=== PATIENT | male | born 1955 | race Caucasian/White ===

== ENCOUNTER 2017-01-20 12:51 | Emergency (ER) | payer OTHER, SELFPAY ==
[2017-01-20] MEDS ORDERED: MORPHINE SULFATE INJ 10 MG/ML VIAL IV ONE (13:23)
[2017-01-20] MEDS ORDERED: ONDANSETRON INJ 4 MG/2 ML VIAL ONE (13:25)
[2017-01-20] MEDS ORDERED: SODIUM CHLORIDE 0.9% 10 ML VIAL ONE (13:26)
[2017-01-20] MEDS ORDERED: ONDANSETRON INJ 4 MG/2 ML VIAL IV ONE (13:38)
--- NOTE | 2017-01-20 13:52 | CT ---
EXAM DESCRIPTION: Abdoment/Pelvis w/o Contrast CLINICAL HISTORY: left flank pain, also concern for AAA COMPARISON: None. TECHNIQUE: CT of the abdomen and pelvis was performed without contrast. Multiple axial images and multiplanar reconstructions were generated. FINDINGS: Lung bases are clear. Osseous structures demonstrate no acute findings. There is fatty infiltration of the liver. Spleen, bilateral adrenal glands and pancreas are unremarkable. Gallbladder is present. Small midsegment right renal hypodensity likely compatible with a cyst. The right ureter is unremarkable. Strandy changes adjacent to the left kidney. There is a small stone noted within the urinary bladder which is likely passed from the left ureter which is still moderately distended. Small 3 mm stone noted within the mid segment of left kidney. Fat-containing bilateral inguinal hernias noted. No lymphadenopathy. The prostate is enlarged measuring 3.7 cm in diameter. The small bowel is likely unremarkable with a few prominent loops of small bowel proximally. The mild colonic diverticulosis without evidence of diverticulitis. The abdominal aorta measures 1.9 cm in diameter. Atherosclerotic disease noted. Fat-containing umbilical hernia. IMPRESSION: 1. Strandy changes adjacent to the mildly distended left ureter and left kidney. These are likely from a recently passed stone which is located within the urinary bladder. This stone is a linear and measures approximately 3.5 mm in diameter. 2. There is a second nonobstructing 3 mm stone noted within the mid segment of left kidney. No additional renal stones on today's study. 3. Hepatic steatosis noted. 4. Moderate hiatal hernia. 5. No evidence of infrarenal abdominal aortic aneurysm. There is atherosclerotic disease. Electronically signed by: Fabricio Stringer MD 01/20/2017 1:51 PM CDT
--- NOTE | 2017-01-20 13:56 | ED.PDOC ---
History of Present Illness - General Chief Complaint: General Time Seen by Provider: 01/20/17 13:02 Source: patient Exam Limitations: no limitations - History of Present Illness Initial Comments: Patient presents with left flank pain for one day. He says it is constant, non- radiating, sharp, no previous episodes. He has trouble getting comfortable in any position. Denies ever having nephrolithiasis before. No urinary complaints. No other complaints. Timing/Duration: 24 hours Severity: severe Improving Factors: nothing Worsening Factors: nothing Associated Symptoms: denies symptoms Allergies/Adverse Reactions: Allergies Penicillins Allergy (Verified 01/20/17 13:37) Unknown Home Medications: Ambulatory Orders Tramadol HCl 50 mg PO Q4HR #14 tab 01/20/17 Review of Systems - Review of Systems Constitutional: States: no symptoms reported EENTM: States: no symptoms reported Respiratory: States: no symptoms reported Cardiology: States: no symptoms reported Gastrointestinal/Abdominal: States: see HPI Genitourinary: States: see HPI Musculoskeletal: States: no symptoms reported Skin: States: no symptoms reported Neurological: States: no symptoms reported Endocrine: States: no symptoms reported Hematologic/Lymphatic: States: no symptoms reported Physical Exam - Physical Exam General Appearance: Obvious distress Respiratory: lungs clear Cardiovascular/Chest: regular rate, rhythm Peripheral Pulses: radial,right: 2+, radial,left: 2+, femoral,right: 2+, femoral ,left: 2+, popliteal,right: 2+, popliteal,left: 2+, dorsalis pedis,right: 2+, dorsalis pedis,left: 2+, posterior tibialis,right: 2+, posterior tibialis,left: 2+ Gastrointestinal/Abdominal: normal bowel sounds, non tender, soft Back Exam: no CVA tenderness Extremity: normal inspection Skin Exam: normal color Lymphatic: no adenopathy Progress - Progress Progress: 01/20/17 13:57 CT abdomen/pelvis showed 3.5 mm stone in the bladder and evidence of recent passing through the left ureter. Patient given morphine 4 mg IV x one Laboratory Tests 01/20/17 13:25 WBC 11.9 H RBC 5.62 Hgb 17.2 Hct 51.5 MCV 91.6 MCH 30.7 MCHC 33.5 RDW 15.1 H Plt Count 294 MPV 8.1 Absolute Neuts (auto) 8.90 H Absolute Lymphs (auto) 1.70 Absolute Monos (auto) 1.10 H Absolute Eos (auto) 0.10 Absolute Basos (auto) 0.10 Neutrophils % 74.9 Lymphocytes % 14.1 L Monocytes % 9.2 H Eosinophils % 0.8 L Basophils % 1.0 Sodium 143 Potassium 4.7 Chloride 104 Carbon Dioxide 33 H Anion Gap 10.7 L BUN 10 Creatinine 0.97 BUN/Creatinine Ratio 10.3 Random Glucose 144 H Serum Osmolality 286.6 Calcium 9.7 Total Bilirubin 0.5 AST 37 ALT 41 Alkaline Phosphatase 71 Serum Total Protein 7.8 Albumin 4.9 Globulin 2.9 Albumin/Globulin Ratio 1.7 Lipase 22 Departure - Departure Clinical Impression: Ureterolithiasis Disposition: Discharge to Home or Self Care Condition: Good Departure Forms: ED Discharge - Pt. Copy, Patient Portal Self Enrollment Diet: resume usual diet Activity: increase activity as tolerated Prescriptions: Tramadol HCl 50 mg PO Q4HR #14 tab Home Medications: Ambulatory Orders Tramadol HCl 50 mg PO Q4HR #14 tab 01/20/17 Additional Instructions: Increase oral fluids. Take medications as prescribed. Follow up with your regular doctor if symptoms last longer than 3 days.
[2017-01-21 09:53] VITALS: BP 172/80; TEMP 97; O2SAT 97
== END 2017-01-20 15:00 | disposition home or self-care (01) ==
LOC: ER 12:51
DX: N20.1 Calculus of ureter (principal); Z88.0 Allergy status to penicillin